=== PATIENT | female | born 1965 | race Two or more races ===

== ENCOUNTER 2018-04-21 15:27 | Emergency (ER) | payer SELFPAY ==
[~2018-04-21] VITALS: Ht 157.5 cm; Wt 62.6 kg
[2018-04-21 15:31] VITALS: Ht 157.5 cm; Wt 62.6 kg
[2018-04-21 17:30] VITALS: BP 127/80
== END 2018-04-21 17:31 | disposition home or self-care (01) ==
LOC: ED 15:27
PROC: 0RSMXZZ Reposition Left Elbow Joint, External Approach (ICD-10-PCS; principal; 2018-04-21)
PROC: 3E033NZ Introduction of Analgesics, Hypnotics, Sedatives into Peripheral Vein, Percutaneous Approach (ICD-10-PCS; 2018-04-21)
PROC: 3E033GC Introduction of Other Therapeutic Substance into Peripheral Vein, Percutaneous Approach (ICD-10-PCS; 2018-04-21)
DX: S53.105A Unspecified dislocation of left ulnohumeral joint, initial encounter (principal); I10 Essential (primary) hypertension; W08.XXXA Fall from other furniture, initial encounter; Y92.9 Unspecified place or not applicable
CPT/HCPCS: J2270; J2405; J2704; Q0092